=== PATIENT | female | born 1975 | race Asian ===

== ENCOUNTER 2017-01-26 20:49 | Emergency (ER) | payer OTHER ==
[~2017-01-26] VITALS: Ht 162.6 cm; Wt 99.8 kg
[~2017-01-26 20:49] MED LIST: AMBIEN5 MG PO; BENTYL10 MG PO; CYCLOSPORINE100 M1 OR; HUMIRA SC; NEXIUM40 M1 PO
[2017-01-26 23:09] LABS: PLATELET COUNT 166 K/uL (152-353)
[2017-01-26 23:13] LABS: SODIUM 137 mmol/L (136-145)
[2017-01-27 00:03] VITALS: BP 123/59; TEMP 97.8
== END 2017-01-27 00:10 | disposition home or self-care (01) ==
LOC: ED 20:49
DX: R07.89 Other chest pain (principal)
CPT/HCPCS: 36415; 80053; 82550; 84484; 85027; 86318; 93005; 99283

== ENCOUNTER 2018-07-14 23:32 | Emergency (ER) | payer OTHER ==
[~2018-07-14] VITALS: Ht 162.6 cm; Wt 97.5 kg
[2018-07-15 00:32] VITALS: BP 128/88; TEMP 98.6
== END 2018-07-15 00:33 | disposition home or self-care (01) ==
LOC: ED 23:32
DX: L40.9 Psoriasis, unspecified (principal); N61.0 Mastitis without abscess
CPT/HCPCS: 96372; 99283; J1020; J1885; J3030

== ENCOUNTER 2018-11-04 17:28 | Emergency (ER) | payer BC ==
[~2018-11-04] VITALS: Ht 162.6 cm; Wt 97.5 kg
[2018-11-04 18:49] VITALS: BP 140/69; TEMP 97.5
== END 2018-11-04 19:04 | disposition home or self-care (01) ==
LOC: ED 17:28
DX: L40.9 Psoriasis, unspecified (principal); L29.9 Pruritus, unspecified
CPT/HCPCS: 96372; 99283; J2930

== ENCOUNTER 2020-01-25 16:30 | Emergency (ER) | payer BC ==
[~2020-01-25] VITALS: Ht 162.6 cm; Wt 95.3 kg
[2020-01-25 16:53] VITALS: TEMP 99.7
[2020-01-25 17:52] LABS: PLATELET COUNT 182 K/uL (152-353)
[2020-01-25 17:55] LABS: POTASSIUM 3.8 mmol/L (3.6-5.2)
[2020-01-25 18:50] VITALS: BP 118/87
== END 2020-01-25 18:50 | disposition home or self-care (01) ==
LOC: ED 16:30
PROVIDERS: Emergency Medicine
DX: N23 Unspecified renal colic (principal); M54.5 Low back pain
CPT/HCPCS: 80053; 81000; 85027; 96374; 99284; J1885

== ENCOUNTER 2020-05-25 22:15 | Emergency (ER) | payer BC ==
[~2020-05-25] VITALS: Ht 162.6 cm; Wt 90.7 kg
[2020-05-25 23:25] VITALS: BP 148/90; TEMP 99
== END 2020-05-25 23:25 | disposition home or self-care (01) ==
LOC: ED 22:15
DX: K04.7 Periapical abscess without sinus (principal)
CPT/HCPCS: 96372; 99283; J1885

== ENCOUNTER 2021-07-12 14:42 | Emergency (ER) | payer BC ==
[~2021-07-12] VITALS: Ht 162.6 cm; Wt 90.7 kg
[2021-07-12 16:20] VITALS: BP 104/73; TEMP 97.8
== END 2021-07-12 16:20 | disposition home or self-care (01) ==
LOC: ED 14:42
DX: L02.211 Cutaneous abscess of abdominal wall (principal)
CPT/HCPCS: 81000; 96372; 99282; J0696

== ENCOUNTER 2021-07-14 16:39 | Emergency (ER) | payer BC ==
[~2021-07-14] VITALS: Ht 162.6 cm; Wt 90.7 kg
[2021-07-14 18:40] VITALS: BP 122/75; TEMP 99.5
== END 2021-07-14 18:40 | disposition home or self-care (01) ==
LOC: ED 16:39
DX: L02.211 Cutaneous abscess of abdominal wall (principal)
CPT/HCPCS: 99282

== ENCOUNTER 2022-02-18 22:30 | Emergency (ER) | payer OTHER ==
[~2022-02-18] VITALS: Ht 162.6 cm; Wt 86.2 kg
[2022-02-19 00:20] VITALS: BP 120/74; TEMP 97.8
== END 2022-02-19 00:20 | disposition home or self-care (01) ==
LOC: ED 22:30
DX: M25.511 Pain in right shoulder (principal); S16.1XXA Strain of muscle, fascia and tendon at neck level, initial encounter; S39.012A Strain of muscle, fascia and tendon of lower back, initial encounter; V89.2XXA Person injured in unspecified motor-vehicle accident, traffic, initial encounter; Y92.89 Other specified places as the place of occurrence of the external cause
CPT/HCPCS: 96372; 99283; J1885

== ENCOUNTER 2022-05-20 22:43 | Emergency (ER) | payer OTHER ==
[~2022-05-20] VITALS: Ht 162.6 cm; Wt 86.2 kg
[2022-05-20 22:45] VITALS: BP 162/108; TEMP 98.2
== END 2022-05-21 00:38 | disposition home or self-care (01) ==
LOC: ED 22:43
DX: B37.3 Candidiasis of vulva and vagina (principal)
CPT/HCPCS: 81000; 99283

== ENCOUNTER 2023-01-18 18:10 | Emergency (ER) | payer OTHER ==
[~2023-01-18] VITALS: Ht 162.6 cm; Wt 95.3 kg
[2023-01-18 18:10] VITALS: BP 121/59; TEMP 98.4
[2023-01-18 19:17] LABS: POTASSIUM 3.6 mmol/L (3.6-5.2)
[2023-01-18 19:18] LABS: PLATELET COUNT 148 K/uL (152-353)
== END 2023-01-18 21:05 | disposition home or self-care (01) ==
LOC: ED 18:10
PROVIDERS: Emergency Medicine Emergency Medical Services
DX: S39.012A Strain of muscle, fascia and tendon of lower back, initial encounter (principal); S20.219A Contusion of unspecified front wall of thorax, initial encounter; V89.2XXA Person injured in unspecified motor-vehicle accident, traffic, initial encounter
CPT/HCPCS: 36415; 80053; 81000; 81025; 82150; 83690; 84484; 85027; 93005; 96372; 99283; J2270; J2405

== ENCOUNTER 2023-04-19 14:20 | Emergency (ER) | payer BC ==
[~2023-04-19] VITALS: Ht 162.6 cm; Wt 95.3 kg
[2023-04-19 14:25] VITALS: BP 137/81; TEMP 99
[2023-04-19 15:21] LABS: PLATELET COUNT 183 K/uL (152-353)
[2023-04-19 15:26] LABS: POTASSIUM 3.5 mmol/L (3.6-5.2)
[2023-04-19 15:41] LABS: PARTIAL THROMBOPLASTIN TIME 27.6 SECONDS (23.9-36.7)
== END 2023-04-19 16:45 | disposition home or self-care (01) ==
LOC: ED 14:20
PROVIDERS: Family Medicine
DX: E87.6 Hypokalemia (principal); R25.2 Cramp and spasm
CPT/HCPCS: 80053; 85027; 85379; 85610; 85730; 99283